=== PATIENT | female | born 1960 | race Caucasian/White ===

== ENCOUNTER 2017-03-20 05:56 | Day surgery (SDC) | payer BC, OTHER ==
[~2017-03-20] VITALS: Ht 172.7 cm; Wt 83.9 kg
--- OUTSIDE RECORDS SUMMARY | 2017-03-20 06:00 | XMS REPORT | Continuity of Care Document ---
Author Author [facility] Organization [facility] Address Unknown Phone Unavailable Support Name Relationship Address Phone SHANEKA BERG MD Caregiver [address] [place] [address] Unavailable SILVIA BABB MD Caregiver [address] [place] [address] [place] [address] Unavailable WYATT BURKS Next Of Kin [address] [place] [address] C Insurance Providers Guarantor Dione Burks Address [address] [facility] [place] [address] C Email [email or web address] Payer [facility] Policy Number [id number] Subscriber's Name Dione Burks Relationship 18 Self Group Number [id number] Effective Date 11/14/15 Payer Other A Insurance Policy Number [id number] Subscriber's Name Dione Burks Relationship 18 Self Group Number [id number] Effective Date 11/09/15 Payer [employer](Medicare/Caid/Tr Subscriber's Name VitaliyDione L Relationship 18 Self Advance Directives Directive Response Recorded Date/Time Advanced Directives Type None 10/12/16 11:40am Chief Complaint and Reason for Visit Chief Complaint Headache Reason for Visit Skull fracture Problems Active Problems Medical Problem Onset Date Status Skull fracture Unknown Acute Medications Current Home Medications Medication Dose Units Route Directions Days Qty Instructions Start Date Multivitamin (Multi-Day Vitamins) 1 Each Tablet 1 Tab Oral Daily 10/12/16 Social History Social History Problem Response Recorded Date/Time Onset Date Status Chewing Tobacco Status No 10/12/2016 12:52pm Not Applicable Not Applicable Hx Substance Use No 10/12/2016 12:52pm Not Applicable Not Applicable Hx Alcohol Use Y "MAYBE A GLASS OF WINE ONCE A MONTH" 10/12/2016 12:52pm Not Applicable Not Applicable Query Response Start Date Stop Date Smoking Status Never smoker Hospital Discharge Instructions No hospital discharge instructions. Plan of Care Discharge Date 10/12/16 5:12pm Disposition 01 DISCHARGED HOME, SELF-CARE Condition at Discharge Stable Instructions/Education Provided Skull and Facial Fracture Prescriptions See Medication Section Referrals SHANEKA BERG MD Address: [address] [facility] [address] [place] [phone] Additional Instructions/Education May take [id number] Tylenol or ibuprofen for pain. Keep a diary of your symptoms as discussed. Follow treatment plan (if your symptoms worsen or you develop any concerning symptoms follow with your PCP or you may return to the ER. Care Plan and Goals Physician Care Plan Problem: Skull fracture Goal: Follow up with primary care provider Instructions: Take medications and follow care plan as discussed/written Functional Status No functional status results. Allergies, Adverse Reactions, Alerts Allergen Type Severity Reaction Status Last Updated Penicillin Allergy Unknown Active 10/12/16 Sulfa (Sulfonamide Antibiotics) Allergy Unknown Active 10/12/16 Immunizations Query Response on File Recorded Date/Time Influenza Vaccine Hx 201410/12/16 12:52pm Tetanus Diptheria Vaccine History 201010/12/16 12:52pm Vital Signs Acute Vital Signs Vital Response Date/Time Temperature (Fahrenheit) 97.8 deg F (96.8 - 99.1) 10/12/2016 11:40am Temperature (Calculated Celsius) 36.03210 degrees C (36.0 - 37.3) 10/12/2016 11:40am Pulse Rate (adult) 72 bpm (60 - 100) 10/12/2016 5:12pm Respiratory Rate 14 breaths/min (10 - 20) 10/12/2016 5:12pm O2 Sat by Pulse Oximetry 99 % (90 - 100) 10/12/2016 5:12pm Blood Pressure 126/75 mm Hg 10/12/2016 5:12pm Height (Feet) 5 feet 10/12/2016 11:40am Height (Inches) 8.00 inches 10/12/2016 11:40am Weight (Kilograms) 86.500 kg 10/12/2016 11:40am Body Mass Index (BMI) 28.0 10/12/2016 11:40am Results No known relevant diagnostic tests, laboratory data and/or discharge summary. Procedures No known history of procedures. Encounters Encounter Location Arrival/Admit Date Discharge/Depart Date Attending Provider Registered Emergency Room [facility] 10/12/16 11:15am SILVIA BABB MD Recent Diagnosis
[2017-03-20 06:20] VITALS: Ht 172.7 cm; Wt 83.9 kg
[2017-03-20 06:24] VITALS: BP 106/66; PULSE 59; RESP 15; TEMP 97.8; O2SAT 99
[2017-03-20] MEDS ORDERED: MULT-1175 (06:29)
[2017-03-20] MEDS ORDERED: LIDOCAINE 1% (10mg/ml) 2ml SDV INJ ONE (07:00)
[2017-03-20] MEDS ORDERED: LR 1,000 ML IV SCH (07:00)
--- NOTE | 2017-03-20 07:19 | ANESPREOP ---
Anesthesia Record Date and Time DATE: 03/20/17 TIME: 07:17 Pre-Op Diagnosis [facility] Proposed Surgical Procedure colonoscopy NPO since: [place] Allergies: Coded Allergies: Penicillins (Verified Allergy, Unknown, 03/19/17) Sulfa (Sulfonamide Antibiotics) (Verified Allergy, Unknown, 03/19/17) Ht/Wt/BMI Height: 5 ' 8.00 " Weight: 83.900 kg BMI: 28.1 kg/m2 Vital Signs Date Time Temp Pulse Resp B/P Pulse Ox O2 Delivery O2 Flow Rate FiO2 03/20/17 06:24 97.8 59 15 106/66 99 Room Air Medications Inpatient Medications Current Medications Medications (Trade) Dose Ordered Sig/Susie Start Time Stop Time Status Last Admin Dose Admin Lactated Ringer's (Lactated Ringers) 1,000 ml @ 50 mls/hr Q20H 03/20/17 07:00 03/20/17 06:45 50 MLS/HR Multivitamin (Multi-Vitamin Daily) 1 Each Tablet, DAILY, (Reported) Last Taken: on 03/18/17 Currently on Beta Maxime: No Medical/Surgical History Anesthesia PMH: Denies: Anesthesia Reactions (no airway issues, N&V), Cancer, Glaucoma, Hepatitis, Malignant Hyperthermia, Rheumatic Fever, Sleep Apnea Smoking Status: Never smoker Use Chewing Tobacco?: No Second Hand Exposure: No Substance Use Type: does not use Alcohol Intake: a few times a week HX of Last Menstrual Period: around age 48 Past Surgical History Orthopedic Surgeries: Abdominal Surgeries: Genitourinary Surgeries: Cardiac Surgeries: Endocrine Surgeries: Reproductive Surgeries: Yes - TUBal ligation Neurological Surgeries: Ear Surgeries: Nose Surgeries: Throat Surgeries: Other Surgeries: Yes - colonoscopy Anesthesia Adverse Reactions: FOUND none Family Hx of Anesthesia Advers: none Hx of Motion Sickness: No Pertinent Findings EKG Rhythm: Sinus Rhythm Physical Exam Respiratory: Bilat breath sounds equal, Lungs clear Cardiovascular: FOUND Regular rate, rhythm, FOUND No murmur Airway Assessment TMD: 3 Fingerbreadths ASA: 1 Plan Anesthesia Plan: TIVA Discussion Discussed risks/options/alternatives of anesthesia and questions answered. Patient consents. Nursing pain assessment noted. Present: Spouse Attestation Statement Prior to the delivery of any anesthetic medication, I examined the patient, developed the plan, obtained the patient's consent and discussed the risk and benefits of the procedure with the patient/guardian. CLARENCE KIRKPATRICK CRNA March 20, 2017 07:19
[2017-03-20] MEDS ORDERED: PROPOFOL 500mg 50 ML IV ONE (07:43)
[2017-03-20] MEDS ORDERED: PROPOFOL 200mg 40 ML IV ONE (08:18)
[2017-03-20 08:32] VITALS: BP 96/52; PULSE 67; RESP 16; TEMP 97.9; O2SAT 100
--- NOTE | 2017-03-20 08:36 | ANESPO ---
Post-Op Note Date 03/20/17 Time: 08:36 Status Pt Participated in Evaluation: Pt participated in person Vital Signs Date Time Temp Pulse Resp B/P Pulse Ox O2 Delivery O2 Flow Rate FiO2 03/20/17 06:24 97.8 59 15 106/66 99 Room Air Respiratory Function: Airway patent Cardiovascular Function: Regular pulse Telemetry Pattern: SR Mental Status: Alert/oriented Pain Level Intensity: 0 Hydration: IV infusing Complications during Recovery None apparent Follow-Up Instructions Instructions Per Surgeon CLARENCE KIRKPATRICK CRNA March 20, 2017 08:36
[2017-03-20 08:47] VITALS: BP 134/75; PULSE 59; RESP 16; O2SAT 100
[2017-03-20 09:02] VITALS: BP 121/78; PULSE 67; RESP 16; O2SAT 100
--- NOTE | 2017-03-20 14:15 | OPNOTEF ---
[facility] DATE: 03/20/2017 PREOPERATIVE DIAGNOSIS: Screening colonoscopy. POSTOPERATIVE DIAGNOSIS: Screening colonoscopy within normal limits. PROCEDURE: Colonoscopy. SURGEON: Patrick Bartlett MD ANESTHESIA: TIVA PROCEDURE NOTE: The patient was prepped with Colyte the evening prior to the procedure. She was placed in a left lateral position. After a benign digital rectal exam, the colonoscope was inserted and advanced to the cecum with cecal landmarks identified. The cecum, ascending colon, transverse colon and sigmoid showed no evidence of hemorrhage, mass lesions, ulcerations, polyps or inflammatory changes. She had no significant diverticular disease. The rectum and anus were clear. The colon was suctioned and the scope removed with the patient tolerating the procedure well. She was stable post colonoscopy. WHIT
== END 2017-03-20 09:17 | disposition home or self-care (01) ==
LOC: NSC 05:56
DX: Z12.11 Encounter for screening for malignant neoplasm of colon (principal); E66.3 Overweight; Z68.28 Body mass index [BMI] 28.0-28.9, adult; M54.5 Low back pain; K30 Functional dyspepsia
CPT/HCPCS: 45378; J2704; J7120

== ENCOUNTER → 2017-03-27 | Outpatient (CLI) | payer BC, OTHER ==
[~2017-03-27] MED LIST: MULT-1175
== END ==
LOC: WC.BC 13:14
DX: Z12.31 Encounter for screening mammogram for malignant neoplasm of breast (principal); N64.59 Other signs and symptoms in breast
CPT/HCPCS: 77063; G0202